=== PATIENT | female | born 1960 | race Two or more races ===

== ENCOUNTER 2017-06-12 14:12 | Emergency (ER) | payer OTHER ==
[~2017-06-12] VITALS: Ht 182.9 cm; Wt 95.2 kg
--- NOTE | ~2017-06-12 | CR150 ---
[facility] A Service of [facility] & [facility] RADIOLOGY TEXT RESULTS PATIENT: ANTONIO KELLY LOCATION: [facility] : 62 UNIT #: [id number] AGE: [address]: Martha Duggan MD SEX: F ORDER DR: [id number] [facility] [address] [place], [place] [address] [id number] E MR#: [id number] Acc #: [id number] NAME: ANTONIO KELLY : 1960 SEX: F STUDY DATE/TIME: 06/12/2017 16:46 UNIT: [facility] ROOM: STUDY DESCRIPTION: CR Hip Min 2 Views Lt Attending Physician: Martha Duggan M.D. Ordering Physician: Martha Duggan M.D. Primary Care Physician: Se Castaneda M.D. MEDICAL IMAGING REPORT This report is preliminary unless electronic signature is present EXAM AP pelvis and frog view left hip 06/12/2017 HISTORY Left hip pain for 5 days. No known injury. FINDINGS No pelvic fracture or hip fracture or dislocation is seen. Hip joint spaces are well preserved without appreciable osteoarthritic change. There is mild diminished disc height eccentrically on the left at L4-5. No sacroiliac joint or pubic symphysis diastasis. No osteolytic or osteoblastic abnormality. IMPRESSION 1. Normal pelvis and left hip. 2. Mild diminished disc height on the left at L4-5. Dictated by... Rocío Zhu M.D. THIS IS AN ELECTRONICALLY VERIFIED REPORT Rocío Zhu M.D. at 06/13/2017 7:46 PM LLH/erlin TD: 06/13/2017 17:11 JOB #: [id number] MEDICAL IMAGING REPORT Page 1 of 1 COPY
== END 2017-06-12 19:14 | disposition home or self-care (01) ==
LOC: CED 14:12
DX: M25.552 Pain in left hip (principal)
CPT/HCPCS: 73502; 99283